=== PATIENT | male | born 1950 | race Caucasian/White ===

== ENCOUNTER 2019-02-28 20:19 | Emergency (ER) | payer MEDICARE, MEDICAID ==
[~2019-02-28] VITALS: Ht 180.3 cm; Wt 109.0 kg
[~2019-02-28 20:19] MED LIST: BACL-141 PO; HYDR-519 PO; MORP15TA67 PO; TAMS-11 PO; TAMS0.4C31 PO; WARF-67 PO
[2019-02-28] MEDS ORDERED: ONDANSETRON HCL 4MG/2ML INJ IV STA (21:17)
[2019-02-28 21:47] LABS: BASOPHILS % 0.7 % (0.0-2.0); EOSINOPHILS % 3.7 % (0.0-5.0); HEMOGLOBIN. 15.9 g/dL (14.0-18.0); LYMPHOCYTES % 17.7 % (20.0-50.0); MEAN CORPUSCULAR HEMOGLOBIN 31.7 pg (28.0-32.0); MEAN CORPUSCULAR VOLUME 93.8 fL (80.0-94.0); MEAN PLATELET VOLUME 8.8 fl (7.4-10.4); MONOCYTES % 9.1 % (2.0-8.0); NEUTROPHILS % 68.8 % (40.0-76.0); PLATELET 92 x1000/uL (130-400); RED BLOOD CELL COUNT 5.01 mill/uL (4.7-6.1); RED CELL DISTRIBUTION WIDTH 15.5 % (11.6-14.6)
[2019-02-28 21:48] LABS: CHLORIDE 110 mEq/L (98-107)
[2019-02-28 21:52] LABS: INR 1.9; PROTHROMBIN TIME 19.2 sec (9.6-11.0)
[2019-02-28] MEDS ORDERED: SODIUM CHLORIDE 0.9% 1,000 ML IV ONE (22:33)
[2019-03-01 01:30] VITALS: BP 118/72
== END 2019-03-01 02:00 | disposition home or self-care (01) ==
LOC: ER 20:19
DX: R42 Dizziness and giddiness (principal); R11.0 Nausea; Z88.8 Allergy status to other drugs, medicaments and biological substances; Z79.01 Long term (current) use of anticoagulants
CPT/HCPCS: 36415; 71045; 80053; 83690; 84484; 85025; 85610; 93005; 96361; 96374; 99284; J2405; J7030